=== PATIENT | female | born 1980 | race Caucasian/White ===

== ENCOUNTER 2016-11-10 18:56 | Emergency (ER) | payer OTHER ==
[~2016-11-10] VITALS: Ht 165.1 cm; Wt 122.5 kg
[~2016-11-10 18:56] MED LIST: ACHYD1T PO; HYDR-3812 PO; TRM50T PO
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
[2016-11-10] MEDS ORDERED: RT-ALBUINH IH (19:11)
[2016-11-10] MEDS ORDERED: NS IV 1000 ML 1,000 ML IV ONE (19:26)
--- NOTE | 2016-11-10 19:47 | ED General ---
General Chief Complaint: Fever-Adult/Adol Stated Complaint: SPIDER BITE;FEVER Nursing Triage Note: pt reports she went to donate blood et fever suddenly went from 98.7 to 103. reports she has had a spider bite on the back of her knee since Monday or Monday. Also c/o soa. Nursing Sepsis Screen: Possible Sepsis Risk Source of Information: Patient Exam Limitations: No Limitations History of Present Illness Time Seen by Provider: 19:15 Initial Comments here with report of fever and a spider bite to the back of her left leg. She states that [facility] and had her fever taken. It was apparently normal. Sometime after that she was noted to be flushed and had her temperature taken again and it was 103. Somebody at that area then looked at the spider bite on the back of her leg and said that she needed to immediately go to the ER which she has done. She does report fever, runny nose with mild cough and a sore throat. Reports this wound to the back of her leg behind the knee that has been there since last Monday or Monday (4- 5 days). And has not gotten too much worse but has not gotten better. Denies nausea or vomiting. Denies dysuria. Has had recent bout of influenza a follow- up on pneumonia earlier this year. Timing/Duration: 1 Hour, 4-5 Days Severity: Moderate Associated Systoms: Cough Fever/ChillsNo Nausea/Vomiting, Rash Shortness of AirNo Weakness Allergies and Home Medications Allergies Coded Allergies: latex (Unverified Allergy, Severe, Swelling, Airway Problems, 08/31/12) Sulfa (Sulfonamide Antibiotics) (Verified Allergy, Unknown, NAUSEA, ) bleeding reaction aspirin (Verified Allergy, Unknown, 11/14/07) ibuprofen (Verified Allergy, Unknown, 11/14/07) lidocaine (Verified Allergy, Unknown, 11/14/07) influenza virus vaccine, specific (Verified Adverse Reaction, Mild, ) Home Medications Albuterol Sulfate 6.7 Gm Hfa.aer.ad 2 PUFF IH Q6H PRN PRN SHORTNESS OF BREATH ( Reported) Constitutional: see HPI EENTM: nose congestion see HPI throat pain Respiratory: see HPI cough short of breath Cardiovascular: no symptoms reported Gastrointestinal: No nausea, No vomiting Genitourinary: no symptoms reported Musculoskeletal: no symptoms reported Skin: see HPI lesions Psychiatric/Neurological: No Symptoms Reported All Other Systems Reviewed Negative Unless Noted: Yes Past Ejdgwvg-Ozvcia-Xtomrb Hx Patient Social History Alcohol Use: Rarely Uses Recreational Drug Use: No Smoking Status: Never a Smoker 2nd Hand Smoke Exposure: No Recent Foreign Travel: No Contact w/Someone Who Travel: No Recent Infectious Disease Expo: No Recent Hopitalizations: No (recently treated for pneumonia outpatient) Seasonal Allergies Seasonal Allergies: Yes Surgeries HX Surgeries: Yes (l knee scope, r fallopian tube) Surgeries: Section, Gallbladder, Orthopedic, Tubal Ligation Respiratory Hx Respiratory Disorders: Yes Respiratory Disorders: Asthma Cardiovascular Hx Cardiac Disorders: No Neurological Hx Neurological Disorders: No Reproductive System Hx Reproductive Disorders: No Genitourinary Hx Genitourinary Disorders: No Gastrointestinal Hx Gastrointestinal Disorders: No Gastrointestinal Disorders: Pancreatitis Musculoskeletal Hx Musculoskeletal Disorders: Yes (bilat knees) Musculoskeletal Disorders: Arthritis Endocrine Hx Endocrine Disorders: No HEENT HX ENT Disorders: No Cancer Hx Cancer: No Psychosocial Hx Psychiatric Problems: No Integumentary HX Skin/Integumentary Disorder: No Blood Transfusions Hx Blood Disorders: Yes (iron defiencincy anemia) Reviewed Nursing Assessment Reviewed/Agree w Nursing PMH: Yes Physical Exam Vital Signs Vital Sign - Last 12Hours 11/10/16 19:04 Temp 101.9 Pulse 130 Resp 32 B/P 190/108 Capillary Refill : Less Than 3 Seconds General Appearance: No Apparent Distress WD/WN HEENT: PERRL/EOMI Pharyngeal ErythemaNo Tonsillar Enlargement, Other ( moderate nasal congestion with clear rhinorrhea and moderate erythema) Neck: Non Tender Supple Respiratory: Lungs Clear Normal Breath Sounds Cardiovascular: No Murmur Tachycardia Gastrointestinal: Non Tender Soft Back: Normal Inspection No CVA Tenderness No Vertebral Tenderness Extremity: Non Tender No Calf Tenderness Neurologic/Psychiatric: Alert Oriented x3 Skin: Normal Color Warm/Dry Focused Exam Lactic Acid Level Laboratory Tests Test 11/10/16 19:45 Alanine Aminotransferase (ALT/SGPT) 20U/L (0-55) Albumin 4.0G/DL (3.2-4.5) Alkaline Phosphatase 76U/L (40-136) Anion Gap 13MMOL/L (5-14) Aspartate Amino Transf (AST/SGOT) 14U/L (5-34) BUN/Creatinine Ratio 14 Blood Urea Nitrogen 11MG/DL (7-18) C-Reactive Protein High Sensitivity 1.96MG/DL (0.00-0.50) H Calcium Level 8.7MG/DL (8.5-10.1) Carbon Dioxide Level 22MMOL/L (21-32) Chloride Level 102MMOL/L (98-107) Creatinine 0.77MG/DL (0.60-1.30) Estimat Glomerular Filtration Rate > 60 Glucose Level 126MG/DL (70-105) H Potassium Level 3.9MMOL/L (3.6-5.0) Sodium Level 137MMOL/L (135-145) Total Bilirubin 0.3MG/DL (0.1-1.0) Total Protein 7.2G/DL (6.4-8.2) Progress/Results/Core Measures Results/Orders Lab Results Laboratory Tests Test 11/10/16 19:35 11/10/16 19:45 Range/Units Group A Streptococcus Screen POSITIVE H NEGATIVE Alanine Aminotransferase (ALT/SGPT) 20 0-55 U/L Albumin 4.0 3.2-4.5 G/DL Alkaline Phosphatase 76 40-136 U/L Anion Gap 13 5-14 MMOL/L Aspartate Amino Transf (AST/SGOT) 14 5-34 U/L BUN/Creatinine Ratio 14 Band Neutrophils 2 % Basophils # (Auto) 0.0 0.0-0.1 10^3/uL Basophils % (Manual) 0 % Basophils (%) (Auto) 0 0-10 % Blood Morphology Comment NORMAL Blood Urea Nitrogen 11 7-18 MG/DL C-Reactive Protein High Sensitivity 1.96 H 0.00-0.50 MG/DL Calcium Level 8.7 8.5-10.1 MG/DL Carbon Dioxide Level 22 21-32 MMOL/L Chloride Level 102 98-107 MMOL/L Creatinine 0.77 0.60-1.30 MG/DL Eosinophils # (Auto) 0.1 0.0-0.3 10^3/uL Eosinophils % (Manual) 0 % Eosinophils (%) (Auto) 1 0-10 % Estimat Glomerular Filtration Rate > 60 Glucose Level 126 H 70-105 MG/DL Hematocrit 35 35-52 % Hemoglobin 11.5 11.5-16.0 G/DL Lymphocytes # (Auto) 1.7 1.0-4.0 X 10^3 Lymphocytes % (Manual) 13 % Lymphocytes (%) (Auto) 11 L 12-44 % Mean Corpuscular Hemoglobin 24 L 25-34 PG Mean Corpuscular Hemoglobin Concent 33 32-36 G/DL Mean Corpuscular Volume 73 L 80-99 FL Mean Platelet Volume 9.7 7.4-10.4 FL Monocytes # (Auto) 0.8 0.0-1.0 X 10^3 Monocytes % (Manual) 1 % Monocytes (%) (Auto) 5 0-12 % Neutrophils # (Auto) 12.2 H 1.8-7.8 X 10^3 Neutrophils % (Manual) 84 % Neutrophils (%) (Auto) 83 H 42-75 % Platelet Count 329 130-400 10^3/uL Potassium Level 3.9 3.6-5.0 MMOL/L Red Blood Count 4.85 4.35-5.85 10^6/uL Red Cell Distribution Width 18.9 H 10.0-14.5 % Sodium Level 137 135-145 MMOL/L Total Bilirubin 0.3 0.1-1.0 MG/DL Total Protein 7.2 6.4-8.2 G/DL White Blood Count 14.8 H 4.3-11.0 10^3/uL Micro Results Microbiology 11/10/16 Influenza Types A,B Antigen (DEMLA) - Final, Complete My Orders Orders-VANDANA SHANKS MD Cbc With Automated Diff (11/10/16 19:26) Comprehensive Metabolic Panel (11/10/16 19:26) Hs C Reactive Protein (11/10/16 19:26) Rapid Strep A Screen (11/10/16 19:26) Influenza A And B Antigens (11/10/16 19:26) Chest Pa/Lat (2 View) (11/10/16 19:26) Saline Lock/Iv-Start (11/10/16 19:26) Ns Iv 1000 Ml (Sodium Chloride 0.9%) (11/10/16 19:26) Wound Culture (11/10/16 19:26) Manual Differential (11/10/16 19:45) Rx-Mupirocin 2% Oint (Rx-Bactroban) (11/10/16 21:04) Cephalexin Capsule (Keflex Capsule) (11/10/16 21:04) Acetaminophen Tablet (Tylenol Tablet) (11/10/16 21:41) Ekg Tracing (11/10/16 22:27) Ns Iv 1000 Ml (Sodium Chloride 0.9%) (11/10/16 22:43) Medications Given in ED Current Medications Medications Dose Ordered Sig/Cain Route Start Time Stop Time Status Last Admin Dose Admin Sodium Chloride 1,000 ml @ 0 mls/hr Q0M ONCE IV 11/10/16 19:26 11/10/16 19:28 DC 11/10/16 19:54 1,000 MLS/HR Vital Signs/I&O Vital Sign - Last 12Hours 11/10/16 11/10/16 19:04 21:49 Temp 101.9 102.6 Pulse 130 Resp 32 B/P 190/108 Blood Pressure Mean: 135 Progress Note : Progress Note seen and evaluated. IV, labs, wound culture left leg, strep screen and influenza screen done. The area of abscess/folliculitis on the posterior left leg just below the bend of the knee was cleansed with Betadine and pustular head unroofed with a needle and culture taken of purulent material that was drained. This was covered with antibiotic ointment and dressing. normal saline 1 L bolus and chest x-ray ordered. Monitor patient. Rapid strep is positive. We will apply mupirocin ointment to the wound and initiate Keflex treatment. Wound cultures are pending. Keflex 500 mg by mouth. Tylenol 1 g by mouth. EKG done. This shows sinus tachycardia. I did review patient's history and she has had recent persistent tachycardia. O2 sats are in normal range On room air. Discharged home with return precautions. Patient verbalize understanding instructions and agreement with plan. ECG Initial ECG Impression Date: Nov 10, 2016 Initial ECG Impression Time: 21:38 Initial ECG Rate: 117 Initial ECG Rhythm: S.Tach Comment Sinus tachycardia with normal axis. No evidence of ST elevation MS. No previous available for comparison. Interpreted by me. Diagnostic Imaging Diagonstic Imaging: Xray Plain Films/CT/US/NM/MRI: chest [facility] [place], [place] NAME: DIANA JOHNSON [facility] REC#: [id number] PT STATUS: REG ER : 1980 PHYSICIAN: VANDANA SHANKS MD ADMIT DATE: 11/10/16/ER Draft Date of Exam:11/10/16 CHEST PA/LAT (2 VIEW) Indication: Fever and dyspnea. Discussion: Two views of the chest were obtained, comparison 04/18/2016. Elevated right hemidiaphragm is stable. Stable normal heart size. No focal consolidation, pleural fluid, or pneumothorax. No osseous abnormality. Impression: 1. Negative chest. Dictated on workstation # [id number] Dict: 11/10/162024 Trans: 11/10/162026 [facility] [id number] Interpreted by: MISTY AYALA MD Electronically signed by: Departure Impression Impression: Primary Impression: Strep pharyngitis Disposition: HOME, SELF-CARE Condition: Stable Departure-Patient Inst. Decision time for Depature: 22:40 Referrals: NO,LOCAL PHYSICIAN (PCP/Family) Primary Care Physician Patient Instructions: Fever, Adult (DC), Strep Throat (DC) Add. Discharge Instructions: All discharge instructions reviewed with patient and/or family. Voiced understanding. You may take Tylenol 1000 mg every 6 hours as needed for pain or fever. Drink plenty of fluids. Follow-up with your Dr. in one to 2 days for recheck. Take medications as directed. Return for worsening, fever, vomiting, weakness, breathing problems or other concerns as needed. Work/School Note: Work Release Form Date Seen in the Emergency Department: Nov 10, 2016 Return to Work: Nov 12, 2016 Restrictions: No Restrictions VANDANA SHANKS MD Nov 10, 2016 19:47
[2016-11-10 19:56] LABS: BASOPHILS % (AUTO) 0 % (0-10); EOSINOPHILS # (AUTO) 0.1 10^3/uL (0.0-0.3); EOSINOPHILS % (AUTO) 1 % (0-10); LYMPHOCYTES # (AUTO) 1.7 X 10^3 (1.0-4.0); LYMPHOCYTES % (AUTO) 11 % (12-44); MEAN CORPUSCULAR HEMOGLOBIN 24 PG (25-34); MEAN CORPUSCULAR HGB CONC 33 G/DL (32-36); MEAN CORPUSCULAR VOLUME 73 FL (80-99); MEAN PLATELET VOLUME 9.7 FL (7.4-10.4); MONOCYTES # (AUTO) 0.8 X 10^3 (0.0-1.0); MONOCYTES % (AUTO) 5 % (0-12); NEUTROPHILS # (AUTO) 12.2 X 10^3 (1.8-7.8); NEUTROPHILS % (AUTO) 83 % (42-75); PLATELET COUNT 329 10^3/uL (130-400); RED BLOOD COUNT 4.85 10^6/uL (4.35-5.85); RED CELL DISTRIBUTION WIDTH 18.9 % (10.0-14.5); WHITE BLOOD COUNT 14.8 10^3/uL (4.3-11.0)
[2016-11-10 20:12] LABS: ALANINE AMINOTRANSFERASE 20 U/L (0-55); CALCIUM 8.7 MG/DL (8.5-10.1); CHLORIDE 102 MMOL/L (98-107); CREATININE SERUM 0.77 MG/DL (0.60-1.30); GFR ESTIMATED > 60; POTASSIUM 3.9 MMOL/L (3.6-5.0); SODIUM 137 MMOL/L (135-145); TOTAL PROTEIN 7.2 G/DL (6.4-8.2); hs C REACTIVE PROTEIN 1.96 MG/DL (0.00-0.50)
[2016-11-10 20:16] LABS: BAND NEUTROPHILS 2 %; BASOPHILS % (MANUAL) 0 %; EOSINOPHILS % (MANUAL) 0 %; LYMPHOCYTES % (MANUAL) 13 %; NEUTROPHILS % (MANUAL) 84 %
--- NOTE | 2016-11-10 20:28 | Diagnostic Imaging Report ---
Indication: Fever and dyspnea. Discussion: Two views of the chest were obtained, comparison 04/18/2016. Elevated right hemidiaphragm is stable. Stable normal heart size. No focal consolidation, pleural fluid, or pneumothorax. No osseous abnormality. Impression: 1. Negative chest. Dictated by: Dictated on workstation # [id number]
[2016-11-10 20:40] LABS: ANION GAP 13 MMOL/L (5-14); ASPARTATE AMINO TRANSFERASE 14 U/L (5-34); BILIRUBIN,TOTAL 0.3 MG/DL (0.1-1.0); BLOOD UREA NITROGEN 11 MG/DL (7-18); BUN/CREATININE RATIO 14; CARBON DIOXIDE 22 MMOL/L (21-32); GLUCOSE 126 MG/DL (70-105)
[2016-11-10] MEDS ORDERED: RX-MUPIROCIN (BACTROBAN) 2% OINT 22 GM TUBE TOP STA (21:04)
[2016-11-10] MEDS ORDERED: CEPHALEXIN 250 MG (KEFLEX) CAP PO STA (21:04)
[2016-11-10] MEDS ORDERED: ACETAMINOPHEN 500 MG TAB (TYLENOL) PO STA (21:41)
[2016-11-10] MEDS ORDERED: NS IV 1000 ML 0 ML ONE (22:43)
[2016-11-10] MEDS ORDERED: CEPH500T PO (22:50)
[2016-11-10 22:52] VITALS: BP 145/97
== END 2016-11-10 22:52 | disposition home or self-care (01) ==
LOC: EDUNIT# 18:56 → ER 18:58
DX: J02.0 Streptococcal pharyngitis (principal); L02.416 Cutaneous abscess of left lower limb
CPT/HCPCS: 36415; 71020; 80053; 85007; 85027; 86141; 87070; 87077; 87186; 87205; 87430; 87804; 93005; 96360; 96361

== ENCOUNTER → 2018-05-15 | Outpatient (CLI) | payer OTHER ==
[~2018-05-15] MED LIST changes: +ACHD5005 PO; +CEPH500T PO; -HYDR-3812 PO; +RT-ALBUINH IH
--- NOTE | 2018-05-15 13:38 | Diagnostic Imaging Report ---
EXAMINATION: Ultrasound of the left neck. INDICATION: Mass. COMPARISON: There are no prior studies available for comparison. FINDINGS: By history, the patient has had a long-standing mass along the left jaw line for approximately 15 years. Two weeks ago, the area in question was drained. It has subsequently increased in size. On this study, there is a 1.8 x 1.0 x 1.5 cm avascular hypoechoic mass with a hyperechoic center in the region of the patient's palpable abnormality. I suspect that this is a small fluid collection complicated by infection and/or hemorrhage. There is also a small benign-appearing 7 x 6 mm lymph node in this same area. No other abnormality is identified. IMPRESSION: There is a small 1.8 x 1.0 x 1.5 cm complex fluid collection in the area of the patient's palpable abnormality. Most likely, this is an infectious/inflammatory process. An ENT consult would be recommended. Dictated by: Dictated on workstation # [id number]
== END ==
LOC: RAD 10:59
PROVIDERS: ATTEND Nurse Practitioner Family
DX: R22.1 Localized swelling, mass and lump, neck (principal)
CPT/HCPCS: 76536

== ENCOUNTER → 2021-04-20 | Outpatient (CLI) | payer OTHER ==
--- NOTE | 2021-04-20 18:30 | Diagnostic Imaging Report ---
EXAM: Left wrist at 4:49 PM INDICATION: Pain to the base of second metacarpal. 3 views were obtained. There are no prior studies available for comparison. There is no fracture, dislocation or acute bony abnormality evident. There do not appear to be any significant arthritic changes of the wrist or the visualized hand. The soft tissues are unremarkable. IMPRESSION: 1. There is no evidence for an acute bony abnormality. 2. If clinical concern regarding an underlying abnormality persists and further imaging is desired, then MRI would be recommended. Dictated by: Dictated on workstation # [id number]
== END ==
LOC: RAD 16:27
PROVIDERS: ATTEND Physician Assistant
DX: M25.532 Pain in left wrist (principal)
CPT/HCPCS: 73110

== ENCOUNTER → 2021-04-28 | Outpatient (CLI) | payer BC, OTHER ==
--- NOTE | 2021-04-28 08:58 | Diagnostic Imaging Report ---
INDICATION: Routine screening. COMPARISON: No prior mammograms are available for comparison. This is a baseline study. TECHNIQUE: 2D and 3D bilateral screening mammography was performed with CAD. FINDINGS: Scattered fibroglandular densities are identified bilaterally. No mass or malignant-appearing microcalcifications are seen. The axillae are unremarkable. IMPRESSION: No mammographic features suspicious for malignancy are identified. ACR BI-RADS Category 1: Negative. Result letter will be mailed to the patient. Note: At least 10% of breast cancer is not imaged by mammography. Dictated by: Dictated on workstation # [id number]
== END ==
LOC: RAD 07:35
PROVIDERS: ATTEND Nurse Practitioner Family
DX: Z12.31 Encounter for screening mammogram for malignant neoplasm of breast (principal)
CPT/HCPCS: 77063; 77067

== ENCOUNTER 2021-08-20 20:58 | Emergency (ER) | payer BC ==
[~2021-08-20] VITALS: Ht 165.1 cm; Wt 108.9 kg
[2021-08-20 21:15] VITALS: BP 119/79
[2021-08-20] MEDS ORDERED: LACTATED RINGERS 1,000 ML IV ONE ×2 (21:30→21:45)
[2021-08-20] MEDS ORDERED: ONDANSETRON 4 MG/2 ML (SDV) Z0FRAN IVP ONE (21:30)
[2021-08-20] MEDS ORDERED: ACETAMINOPHEN 500 MG TAB (TYLENOL) PO PRN (21:30)
[2021-08-20 21:34] LABS: ABG BASE EXCESS -0.7 MMOL/L (-2.5-2.5); ABG OXYGEN SATURATION 96 % (94-100); ABG PCO2 37 MMHG (35-45); ABG PH 7.42 (7.37-7.43); ABG PO2 90 MMHG (79-93); ABG TCO2 23.9 MMOL/L (21.0-31.0)
[2021-08-20 21:37] LABS: ALLENS TEST YES-POS; INSPIRED O2 ROOM AIR; VENTILATOR NO
--- NOTE | 2021-08-20 21:37 | ED Dyspnea ---
General Chief Complaint: COVID19 Suspect/Confirmed Stated Complaint: SOA,COUGH,N/V, DIARRHEA,HEADACHE Source of Information: Patient Exam Limitations: No Limitations History of Present Illness Date Seen by Provider: Aug 20, 2021 Time Seen by Provider: 21:14 Initial Comments Patient ER by private conveyance with chief complaint that she is feeling very short of breath today. On Monday she was diagnosed with influenza A and a couple days later she was diagnosed with COVID-19. She does not have any lung history. She does not smoke cigarettes. She does however have diabetes on sulfonylureas only. She denies any other significant medical history. No lung disease. She is not coughing anything up. Has been vomiting a lot and having diarrhea and feels very dehydrated. She does not have any nausea medicines at home. She is not able to take anything for antipyretics or antidiarrheal either. She has been having fever throughout the week. She never got a COVID-1 9 vaccine because she was "allergic to it". She has a stated history of allergic reaction to influenza and all NSAIDs caused her to have difficulty breathing. Allergies and Home Medications Allergies Coded Allergies: latex (Unverified Allergy, Severe, Swelling, Airway Problems, 08/31/12) Sulfa (Sulfonamide Antibiotics) (Verified Allergy, Unknown, NAUSEA, 11/10/16) bleeding reaction aspirin (Verified Allergy, Unknown, 11/14/07) ibuprofen (Verified Allergy, Unknown, 11/14/07) lidocaine (Verified Allergy, Unknown, 11/14/07) influenza virus vaccine, specific (Verified Adverse Reaction, Mild, 12/10/12) Patient Home Medication List Home Medication List Reviewed: Yes Albuterol Sulfate (Proventil Hfa) 6.7 Gm Hfa.aer.ad, 2 PUFF IH Q6H PRN for SHORTNESS OF BREATH, (Reported) Entered as Reported by: RACHEL RAE on 11/10/161910 Cephalexin (Cephalexin) 500 Mg Tablet, 500 MG PO TID Prescribed by: VANDANA SHANKS on 11/10/162249 Ondansetron (Ondansetron Odt) 4 Mg Tab.rapdis, 4-8 MG PO Q6H PRN for NAUSEA/VOMITING Prescribed by: KATHLEEN JURADO on 08/20/21 2320 Promethazine HCl (Promethazine Tablet) 25 Mg Tablet, 25 MG PO Q6H PRN for NAUSEA/VOMITING Prescribed by: KATHLEEN JURADO on 08/20/21 4850 Review of Systems Review of Systems Constitutional: No chills, No diaphoresis EENTM: No ear discharge, No ear pain Respiratory: cough; No phlegm; short of breath; No wheezing Gastrointestinal: No abdominal pain, No nausea, No vomiting Genitourinary: No discharge, No dysuria Musculoskeletal: No back pain, No joint pain Psychiatric/Neurological: Anxiety; Denies Depressed All Other Systems Reviewed Negative Unless Noted: Yes Past Ytgmnvx-Wwiiyw-Ocecju Hx Patient Social History Tobacco Use?: No Use of E-Cig and/or Vaping dev: No Substance use?: No Alcohol Use?: No Pt feels they are or have been: No Immunizations Up To Date Influenza Vaccine Up-to-Date: No; Not Current Seasonal Allergies Seasonal Allergies: Yes Past Medical History Section, Gallbladder, Orthopedic, Tubal Ligation Asthma Reproductive Disorders: No Pancreatitis Arthritis Physical Exam Vital Signs Vital Signs - First Documented Capillary Refill : Height, Weight, BMI Height: 5'5" Weight: 270lbs. oz. [phone]; BMI Method:Stated General Appearance: WD/WN, Moderate Distress HEENT: PERRL/EOMI, Normal ENT Inspection; No Pharynx Normal, No Moist Mucous Membranes Neck: Full Range of Motion, Normal Inspection, Non Tender Respiratory: Lungs Clear, Normal Breath Sounds, Accessory Muscle Use, Respiratory Distress (Mild to moderate moderate with respiratory rate around 30- 32 and oxygen saturations 92%. On room air.) Cardiovascular: Regular Rate, Rhythm, No Edema, Normal Peripheral Pulses Peripheral Pulses: 2+ Radial Pulses (R), 2+ Radial Pulses (L) Gastrointestinal: Normal Bowel Sounds, Non Tender, Soft Extremity: Normal Capillary Refill, Normal Inspection, No Pedal Edema Neurologic/Psychiatric: Alert, Oriented x3, No Motor/Sensory Deficits, Other (Depressed affect, tired) Skin: Normal Color, Warm/Dry Focused Exam Lactate Level 08/20/21 21:35: Lactic Acid Level 0.86 Lactic Acid Level Laboratory Tests Test 08/20/21 21:35 Lactic Acid Level 0.86 MMOL/L (0.50-2.00) Progress/Results/Core Measures Results/Orders Lab Results Laboratory Tests Test 08/20/21 21:20 08/20/21 21:35 08/20/21 21:45 08/20/21 21:50 Range/Units Blood Gas Puncture Site RIGHT RADIAL Blood Gas Patient Temperature 102.00 Arterial Blood pH 7.42 7.37-7.43 Arterial Blood Partial Pressure CO2 37 35-45 MMHG Arterial Blood Partial Pressure O2 90 79-93 MMHG Arterial Blood HCO3 23 23-27 MMOL/L Arterial Blood Total CO2 23.9 21.0-31.0 MMOL/L Arterial Blood Oxygen Saturation 96 94-100 % Arterial Blood Base Excess -0.7 -2.5-2.5 MMOL/L Maciej Test YES-POS Blood Gas Ventilator Setting NO Blood Gas Inspired Oxygen ROOM AIR White Blood Count 5.4 4.3-11.0 10^3/uL Red Blood Count 4.56 3.80-5.11 10^6/uL Hemoglobin 13.2 11.5-16.0 g/dL Hematocrit 38 35-52 % Mean Corpuscular Volume 83 80-99 fL Mean Corpuscular Hemoglobin 29 25-34 pg Mean Corpuscular Hemoglobin Concent 35 32-36 g/dL Red Cell Distribution Width 12.0 10.0-14.5 % Platelet Count 141 130-400 10^3/uL Mean Platelet Volume 11.1 9.0-12.2 fL Immature Granulocyte % (Auto) 0 % Neutrophils (%) (Auto) 72 42-75 % Lymphocytes (%) (Auto) 21 12-44 % Monocytes (%) (Auto) 6 0-12 % Eosinophils (%) (Auto) 0 0-10 % Basophils (%) (Auto) 0 0-10 % Neutrophils # (Auto) 3.9 1.8-7.8 10^3/uL Lymphocytes # (Auto) 1.2 1.0-4.0 10^3/uL Monocytes # (Auto) 0.3 0.0-1.0 10^3/uL Eosinophils # (Auto) 0.0 0.0-0.3 10^3/uL Basophils # (Auto) 0.0 0.0-0.1 10^3/uL Immature Granulocyte # (Auto) 0.0 0.0-0.1 10^3/uL Prothrombin Time 13.5 12.2-14.7 SEC INR Comment 1.0 0.8-1.4 Activated Partial Thromboplast Time 36 H 24-35 SEC D-Dimer 1.41 H 0.00-0.49 UG/ML Sodium Level 129 L 135-145 MMOL/L Potassium Level 3.7 3.6-5.0 MMOL/L Chloride Level 98 98-107 MMOL/L Carbon Dioxide Level 19 L 21-32 MMOL/L Anion Gap 12 5-14 MMOL/L Blood Urea Nitrogen 9 7-18 MG/DL Creatinine 0.76 0.60-1.30 MG/DL Estimat Glomerular Filtration Rate 83 BUN/Creatinine Ratio 12 Glucose Level 181 H 70-105 MG/DL Lactic Acid Level 0.86 0.50-2.00 MMOL/L Calcium Level 8.3 L 8.5-10.1 MG/DL Corrected Calcium 8.5 8.5-10.1 MG/DL Total Bilirubin 0.5 0.1-1.0 MG/DL Aspartate Amino Transf (AST/SGOT) 27 5-34 U/L Alanine Aminotransferase (ALT/SGPT) 21 0-55 U/L Alkaline Phosphatase 58 40-136 U/L C-Reactive Protein High Sensitivity 4.73 H 0.00-0.50 MG/DL Total Protein 7.6 6.4-8.2 GM/DL Albumin 3.8 3.2-4.5 GM/DL Procalcitonin 0.06 <0.10 NG/ML Magnesium Level 1.7 1.6-2.4 MG/DL Urine Color YELLOW Urine Clarity CLEAR Urine pH 6.0 5-9 Urine Specific Check 1.025 H 1.016-1.022 Urine Protein 1+ H NEGATIVE Urine Glucose (UA) NEGATIVE NEGATIVE Urine Ketones NEGATIVE NEGATIVE Urine Nitrite NEGATIVE NEGATIVE Urine Bilirubin NEGATIVE NEGATIVE Urine Urobilinogen 0.2 < = 1.0 MG/DL Urine Leukocyte Esterase NEGATIVE NEGATIVE Urine RBC (Auto) NEGATIVE NEGATIVE Urine RBC NONE /HPF Urine WBC NONE /HPF Urine Squamous Epithelial Cells 2-5 /HPF Urine Crystals NONE /LPF Urine Bacteria TRACE /HPF Urine Casts NONE /LPF Urine Mucus MODERATE H /LPF Urine Culture Indicated CULTURE PENDING My Orders Orders - KATHLEEN JURADO Arterial Blood Gas (08/20/21 21:25) Cbc With Automated Diff (08/20/21 21:25) Comprehensive Metabolic Panel (08/20/21 21:25) Blood Culture (08/20/21 21:25) Urinalysis (08/20/21 21:25) Urine Culture (08/20/21 21:25) Protime With Inr (08/20/21:25) Partial Thromboplastin Time (08/20/21:25) Chest 1 View, Ap/Pa Only (08/20/21 21:25) Acetaminophen Tablet (Tylenol Tablet) (08/20/21 21:30) Ed Iv/Invasive Line Start (08/20/21 21:25) Ed Iv/Invasive Line Start (08/20/21:25) Vital Signs Adult Sepsis Patie Q15M (08/20/21 21:25) O2 (08/20/21 21:25) Remove Rings In Anticipation O (08/20/21:25) Lactic Acid Analyzer (08/20/21:25) Lactated Ringers (Lr 1000 Ml Iv Solution (08/20/21 21:30) Covid-19 External Lab Results (08/20/21 21:25) Isolation Central Supply Req (08/20/21 21:25) Ondansetron Injection (Zofran Injectio (08/20/21 21:30) Procalcitonin (Pct) (08/20/21 21:31) Hs C Reactive Protein (08/20/21:31) Fibrin Degradation Products (08/20/21:31) Ed Iv/Invasive Line Start (08/20/21 21:31) Lactated Ringers (Lr 1000 Ml Iv Solution (08/20/21 21:45) Magnesium (08/20/21 21:51) Ct Angio Chest W (08/20/21 22:00) Iohexol Injection (Omnipaque 350 Mg/Ml 1 (08/20/21 22:45) Received Contrast (Hold Metformin- Contr (08/20/21 22:45) Ns (Ivpb) (Sodium Chloride 0.9% Ivpb Bag (08/20/21 22:45) Promethazine Injection (Phenergan Injec (08/20/21 23:30) Diphenhydramine Injection (Benadryl Inje (08/20/21 23:30) Phenol/Na Phenolate Lozenge (Chlorasepti (08/21/21 01:15) Medications Given in ED Current Medications Medications Dose Ordered Sig/Cain Route Start Time Stop Time Status Last Admin Dose Admin Acetaminophen 1,000 mg ONCE PRN PO 08/20/21 21:30 08/20/21 21:44 DC 08/20/21 21:43 1,000 MG Diphenhydramine HCl 25 mg ONCE ONCE IVP 08/20/21 23:30 08/20/21 23:31 DC 08/21/21 00:09 25 MG Iohexol 100 ml ONCE ONCE IV 08/20/21 22:45 08/20/21 22:52 DC 08/20/21 22:58 100 ML Lactated Ringer's 1,000 ml @ 0 mls/hr Q0M ONCE IV 08/20/21 21:30 08/20/21 21:31 DC 08/20/21 21:41 1,000 MLS/HR Lactated Ringer's 1,000 ml @ 0 mls/hr Q0M ONCE IV 08/20/21 21:45 08/20/21 21:46 DC 08/21/21 00:09 1,000 MLS/HR Ondansetron HCl 8 mg ONCE ONCE IVP 08/20/21 21:30 08/20/21 21:31 DC 08/20/21 21:41 8 MG Phenol 1 jose a ONCE ONCE MM 08/21/21 01:15 08/21/21 01:17 DC 08/21/21 01:30 1 JOSE A Promethazine HCl 25 mg ONCE ONCE IVP 08/20/21 23:30 08/20/21 23:31 DC 08/21/21 00:09 25 MG Sodium Chloride 100 ml ONCE ONCE IV 08/20/21 22:45 08/20/21 22:52 DC 08/20/21 22:58 80 ML Vital Signs/I&O 08/20/21 08/20/21 08/20/21 21:15 21:15 21:15 Temp 38.9 Pulse 117 Resp 20 B/P (MAP) 119/79 (92) Pulse Ox 95 95 O2 Delivery Room Air Room Air Room Air Progress Progress Note #1: Time: 21:35 Progress Note Patient is working very hard to maintain oxygen saturations above 90%. Get an ABG labs give her some Zofran a liter of fluids chest x-ray septic work-up. We will hold off on antibiotics as having Covid and influenza should explain her symptoms. We will get a D-dimer and CRP and PCT. We will get a CT of her chest if she indeed has elevated D-dimer as I suspect she will Progress Note #2: Time: 22:23 Progress Note No antibiotics at this time. We will let her have 2 L of fluid and get a CT angiogram of her chest to rule out pulmonary embolism. ABG is okay. She will likely be okay to go home if her symptoms are improved after our interventions. Sodium is a little low if we get her nausea to stop however then it will likely correct. Progress Note #3: Time: 23:17 Progress Note The patient's nausea has improved however she still feeling nauseated a little bit. She was able to keep Tylenol down and her temperature is 99.8. She has about three quarters of a liter in order to give her a total of 2 L to help rehydrate her. We will also give her some promethazine and Benadryl and then let her go home with return precautions. Patient is okay with this plan. Progress Note #4: Time: 01:06 Progress Note After Phenergan the patient's nausea is better. She also gave her a sore throat to be give her some hot tea and sugar. We will get her a Chloraseptic lozenge. Diagnostic Imaging Diagonstic Imaging: Xray Plain Films/CT/US/NM/MRI: chest Comments [facility]. [place], [place] NAME: DIANA JOHNSON [facility] REC#: [id number] PT STATUS: REG ER : 1980 PHYSICIAN: KATHLEEN JURADO MD ADMIT DATE: 08/20/21/ER Signed Date of Exam:08/20/21 CHEST 1 VIEW, AP/PA ONLY EXAMINATION: Chest radiograph, portable AP view. DATE: 08/20/2021 10:04 PM. INDICATION: 40-year-old female, cough, shortness of breath. Covid positive. COMPARISON: April 18, 2016. FINDINGS: Lung volumes are low with associated central bronchovascular crowding. There is no identified pneumothorax. There is no large pleural effusion. There is no radiographically apparent focal airspace consolidation. IMPRESSION: Low lung volumes without radiographically apparent acute cardiopulmonary abnormality. Dictated by: Dictated on workstation # [id number] Dict: 08/20/212204 Trans: 08/20/212211 [facility] [id number] Interpreted by: EULA COONEY MD Electronically signed by: EULA COONEY MD 08/20/212211 Reviewed: Reviewed by Me Diagonstic Imaging: CT (angio) Plain Films/CT/US/NM/MRI: chest Comments [facility] [place] [place] NAME: DIANA JOHNSON [facility] REC#: [id number] PT STATUS: REG ER : 1980 PHYSICIAN: KATHLEEN JURADO MD ADMIT DATE: 08/20/21/ER Signed Date of Exam:08/20/21 CT ANGIO CHEST W PROCEDURE: CT angiography of the chest with contrast. TECHNIQUE: Multiple contiguous axial images were obtained through the chest after uneventful bolus administration of intravenous contrast. 3D reconstructed CTA MIP acquisitions were also performed. Auto Exposure Controls were utilized during the CT exam to meet ALARA standards for radiation dose reduction. DATE: August 20, 2021. COMPARISON: Chest radiograph August 20, 2021. INDICATION: 40-year-old male, cough. Shortness of breath. FINDINGS: There is multifocal patchy bilateral alveolar consolidation. There is no pneumothorax. There is no pleural effusion. The central airways are patent. There is no identified pulmonary embolus. The heart is not enlarged. There is no pericardial effusion. There is no identified abnormally enlarged mediastinal, hilar or more axillary lymph node meeting CT size criteria for adenopathy. There is diffuse fatty infiltration of the liver. There is no identified acute bony abnormality. IMPRESSION: CT chest: 1. Multifocal patchy bilateral alveolar consolidation most likely reflecting multifocal pneumonia. Atypical infectious etiologies including Covid 19 are in the differential diagnosis. 2. No identified pulmonary embolus. 3. Diffuse fatty infiltration of the liver. Dictated by: Dictated on workstation # [id number] Dict: 08/20/212241 Trans: 08/20/212247 [facility] [id number] Interpreted by: EULA COONEY MD Electronically signed by: EULA COONEY MD 08/20/212247 Reviewed: Reviewed by Me Departure Impression Primary Impression: COVID-19 Additional Impressions: Influenza A Dehydration Nausea & vomiting Qualified Codes: R11.2 - Nausea with vomiting, unspecified Diarrhea Qualified Codes: R19.7 - Diarrhea, unspecified Disposition: 01 HOME, SELF-CARE Condition: Stable Departure-Patient Inst. Decision time for Depature: 02:00 Referrals: REJI PÉREZ DO (PCP/Family) Primary Care Physician Patient Instructions: COVID-19 Overview Add. Discharge Instructions: Zofran 1 to 2 tablets every 6 hours under the tongue as necessary for nausea and/or vomiting. Promethazine 1 tablet every 6 hours as necessary for breakthrough nausea despite Zofran. Drink plenty of fluids. Sports drinks are encouraged. You may return off of isolation onAugust 24 as long as the final 24 hours you are fever free without medications to mask the symptoms. Tylenol 1000 mg every 8 hours as necessary for body aches, fever or chills. If you feel short of breath then I encourage you to get a pulse oximeter and if you are saturation monitor is consistently below 90% while at rest then I would encourage you to return to the nearest ER for examination. All discharge instructions reviewed with patient and/or family. Voiced understanding. Scripts Promethazine HCl (Promethazine Tablet) 25 Mg Tablet 25 MG PO Q6H PRN for NAUSEA/VOMITING, #10 TAB 0 Refills Prov: KATHLEEN JURADO 08/20/21 Ondansetron (Ondansetron Odt) 4 Mg Tab.rapdis 4-8 MG PO Q6H PRN for NAUSEA/VOMITING, #20 TAB 0 Refills Prov: KATHLEEN JURADO 08/20/21 Work/School Note: Work Release Form Date Seen in the Emergency Department: Aug 20, 2021 Return to Work: Aug 24, 2021 Restrictions: Return-No Fever (24hrs) Other Restrictions Listed Below: Off isolation if final 24 hours symptom- free. Restrictions: Please excuse since 08/12/2021. KATHLEEN JURADO Aug 20, 2021 21:36
[2021-08-20 21:42] LABS: BASOPHILS % (AUTO) 0 % (0-10); EOSINOPHILS % (AUTO) 0 % (0-10); HEMATOCRIT 38 % (35-52); HEMOGLOBIN 13.2 g/dL (11.5-16.0); LYMPHOCYTES # (AUTO) 1.2 10^3/uL (1.0-4.0); LYMPHOCYTES % (AUTO) 21 % (12-44); MEAN CORPUSCULAR HEMOGLOBIN 29 pg (25-34); MEAN CORPUSCULAR HGB CONC 35 g/dL (32-36); MEAN CORPUSCULAR VOLUME 83 fL (80-99); MEAN PLATELET VOLUME 11.1 fL (9.0-12.2); MONOCYTES # (AUTO) 0.3 10^3/uL (0.0-1.0); MONOCYTES % (AUTO) 6 % (0-12); NEUTROPHILS # (AUTO) 3.9 10^3/uL (1.8-7.8); NEUTROPHILS % (AUTO) 72 % (42-75); PLATELET COUNT 141 10^3/uL (130-400); WHITE BLOOD COUNT 5.4 10^3/uL (4.3-11.0)
[2021-08-20 21:52] LABS: ALBUMIN 3.8 GM/DL (3.2-4.5); POTASSIUM 3.7 MMOL/L (3.6-5.0)
[2021-08-20 21:53] LABS: CALCIUM 8.3 MG/DL (8.5-10.1); FIBRIN DEGRADATION PRODUCTS 1.41 UG/ML (0.00-0.49); PROTHROMBIN TIME PATIENT 13.5 SEC (12.2-14.7)
[2021-08-20 21:55] LABS: TOTAL PROTEIN 7.6 GM/DL (6.4-8.2)
[2021-08-20 21:56] LABS: BILIRUBIN,TOTAL 0.5 MG/DL (0.1-1.0)
[2021-08-20 21:58] LABS: CREATININE SERUM 0.76 MG/DL (0.60-1.30)
[2021-08-20 22:03] LABS: BILIRUBIN,URINE NEGATIVE (NEGATIVE); CLARITY,URINE CLEAR; COLOR,URINE YELLOW; GLUCOSE, URINE (UA) NEGATIVE (NEGATIVE); KETONES,URINE NEGATIVE (NEGATIVE); LEUKOCYTE ESTERASE ,URINE NEGATIVE (NEGATIVE); NITRITE,URINE NEGATIVE (NEGATIVE); PROTEIN,URINE 1+ (NEGATIVE)
--- NOTE | 2021-08-20 22:08 | Diagnostic Imaging Report ---
EXAMINATION: Chest radiograph, portable AP view. DATE: 08/20/2021 10:04 PM. INDICATION: 40-year-old female, cough, shortness of breath. Covid positive. COMPARISON: April 18, 2016. FINDINGS: Lung volumes are low with associated central bronchovascular crowding. There is no identified pneumothorax. There is no large pleural effusion. There is no radiographically apparent focal airspace consolidation. IMPRESSION: Low lung volumes without radiographically apparent acute cardiopulmonary abnormality. Dictated by: Dictated on workstation # [id number]
[2021-08-20 22:10] LABS: BACTERIA,URINE TRACE /HPF
[2021-08-20] MEDS ORDERED: NS 100 ML (IVPB) BAG IV ONE (22:45)
[2021-08-20] MEDS ORDERED: HOLD METFORMIN - RECEIVED CONTRAST 20 ML VIAL IV SCH (22:45)
[2021-08-20] MEDS ORDERED: IOHEXOL 350 MG/ML 100 ML (OMNIPAQUE 350) VIAL IV ONE (22:45)
--- NOTE | 2021-08-20 22:48 | Diagnostic Imaging Report ---
PROCEDURE: CT angiography of the chest with contrast. TECHNIQUE: Multiple contiguous axial images were obtained through the chest after uneventful bolus administration of intravenous contrast. 3D reconstructed CTA MIP acquisitions were also performed. Auto Exposure Controls were utilized during the CT exam to meet ALARA standards for radiation dose reduction. DATE: August 20, 2021. COMPARISON: Chest radiograph August 20, 2021. INDICATION: 40-year-old male, cough. Shortness of breath. FINDINGS: There is multifocal patchy bilateral alveolar consolidation. There is no pneumothorax. There is no pleural effusion. The central airways are patent. There is no identified pulmonary embolus. The heart is not enlarged. There is no pericardial effusion. There is no identified abnormally enlarged mediastinal, hilar or more axillary lymph node meeting CT size criteria for adenopathy. There is diffuse fatty infiltration of the liver. There is no identified acute bony abnormality. IMPRESSION: CT chest: 1. Multifocal patchy bilateral alveolar consolidation most likely reflecting multifocal pneumonia. Atypical infectious etiologies including Covid 19 are in the differential diagnosis. 2. No identified pulmonary embolus. 3. Diffuse fatty infiltration of the liver. Dictated by: Dictated on workstation # [id number]
[2021-08-20] MEDS ORDERED: ONDA4TAB11 PO (23:20)
[2021-08-20] MEDS ORDERED: PROM25TA14 PO (23:20)
[2021-08-20] MEDS ORDERED: PROMETHAZINE INJ 25 MG/ML (PHENERGAN) AMP IVP ONE (23:30)
[2021-08-20] MEDS ORDERED: diphenhydrAMINE 50 MG/ML INJ (BENADRYL) IVP ONE (23:30)
[2021-08-21] MEDS ORDERED: CHLORASEPTIC LOZENGE MM ONE (01:15)
== END 2021-08-21 02:14 | disposition home or self-care (01) ==
LOC: EDUNIT# 20:58 → ER 21:02
DX: U07.1 COVID-19 (principal); J09.X2 Influenza due to identified novel influenza A virus with other respiratory manifestations; J45.909 Unspecified asthma, uncomplicated; Z73.0 Burn-out; Z79.899 Other long term (current) drug therapy; Z88.2 Allergy status to sulfonamides; Z88.8 Allergy status to other drugs, medicaments and biological substances
CPT/HCPCS: 36415; 71045; 71275; 80053; 81000; 82805; 83605; 83735; 84145; 85025; 85379; 85610; 85730; 86141; 87040; 87088

== ENCOUNTER 2021-08-23 10:06 | Outpatient (CLI) | payer BC ==
[~2021-08-23] VITALS: Ht 165 cm; Wt 109.0 kg
[~2021-08-23 10:06] MED LIST changes: +ONDA4TAB11 PO; +PROM25TA14 PO
[2021-08-23] MEDS ORDERED: ONDANSETRON 4 MG/2 ML (SDV) Z0FRAN IV ONE (10:07)
[2021-08-23 10:35] VITALS: BP 104/65
[2021-08-23] MEDS ORDERED: diphenhydrAMINE 50 MG/ML INJ (BENADRYL) IV PRN (10:45)
[2021-08-23] MEDS ORDERED: ACETAMINOPHEN 500 MG TAB (TYLENOL) PO PRN (10:45)
[2021-08-23] MEDS ORDERED: EPINEPHrine INJECTION 1 MG/ML AMP IM PRN (10:45)
[2021-08-23] MEDS ORDERED: BAMLANIVIMAB 700 MG/ETESEVIMAB 1,400 MG IN NS IV ONE ×3 (10:45)
[2021-08-23] MEDS ORDERED: ONDANSETRON 4 MG/2 ML (SDV) Z0FRAN IV PRN (10:45)
[2021-08-23 12:16] VITALS: BP 102/65
== END 2021-08-23 12:25 | disposition home or self-care (01) ==
LOC: INFUSION 10:06
PROVIDERS: ATTEND Nurse Practitioner Family
DX: U07.1 COVID-19 (principal)

== ENCOUNTER 2021-08-31 13:33 | Emergency (ER) | payer BC ==
[~2021-08-31] VITALS: Ht 165.1 cm; Wt 108.9 kg
[2021-08-31 13:56] LABS: BASOPHILS % (AUTO) 0 % (0-10); EOSINOPHILS # (AUTO) 0.2 10^3/uL (0.0-0.3); EOSINOPHILS % (AUTO) 2 % (0-10); HEMATOCRIT 39 % (35-52); HEMOGLOBIN 12.6 g/dL (11.5-16.0); LYMPHOCYTES # (AUTO) 1.9 10^3/uL (1.0-4.0); LYMPHOCYTES % (AUTO) 20 % (12-44); MEAN CORPUSCULAR HEMOGLOBIN 28 pg (25-34); MEAN CORPUSCULAR HGB CONC 32 g/dL (32-36); MEAN CORPUSCULAR VOLUME 87 fL (80-99); MEAN PLATELET VOLUME 9.5 fL (9.0-12.2); MONOCYTES # (AUTO) 0.5 10^3/uL (0.0-1.0); MONOCYTES % (AUTO) 5 % (0-12); NEUTROPHILS # (AUTO) 6.8 10^3/uL (1.8-7.8); NEUTROPHILS % (AUTO) 72 % (42-75); PLATELET COUNT 363 10^3/uL (130-400); WHITE BLOOD COUNT 9.5 10^3/uL (4.3-11.0)
--- NOTE | 2021-08-31 14:19 | ED Cough/URI ---
General Chief Complaint: Respiratory Problems Stated Complaint: SOB Source: patient Exam Limitations: no limitations (SAVANNA CLARKE APRN) History of Present Illness Date Seen by Provider: Aug 31, 2021 Time Seen by Provider: 14:16 Initial Comments To ER by private vehicle with reports of shortness of breath and intractable c oughing. No fevers. She tested positive for influenza A at counts include 234 beds at the [facility] on 08/15. A few days later she began feeling worse and on the she tested positive for Covid. She is not immunized against Covid. She was seen here on the for Covid and got IV fluids, she had a monoclonal antibody infusion on August 23. She was at work today when she developed worsening shortness of breath and cough and was referred to ER by counts include 234 beds at the [facility]. Timing/Duration: constant Severity/Quality: moderate Associated Symptoms: shortness of breath (SAVANNA CLARKE APRN) Allergies and Home Medications Allergies Coded Allergies: latex (Unverified Allergy, Severe, Swelling, Airway Problems, 08/31/12) Sulfa (Sulfonamide Antibiotics) (Verified Allergy, Unknown, NAUSEA, 11/10/16) bleeding reaction aspirin (Verified Allergy, Unknown, 11/14/07) ibuprofen (Verified Allergy, Unknown, 11/14/07) lidocaine (Verified Allergy, Unknown, 11/14/07) sulfamethoxazole (Verified Allergy, Unknown, 08/23/21) trimethoprim (Verified Allergy, Unknown, 08/23/21) influenza virus vaccine, specific (Verified Adverse Reaction, Mild, 12/10/12) Patient Home Medication List Home Medication List Reviewed: Yes (SAVANNA CLARKE APRN) Albuterol Sulfate (Proventil Hfa) 6.7 Gm Hfa.aer.ad, 2 PUFF IH Q6H PRN for SHORTNESS OF BREATH, (Reported) Entered as Reported by: RACHEL RAE on 11/10/161910 Cephalexin (Cephalexin) 500 Mg Tablet, 500 MG PO TID Prescribed by: VANDANA SHANKS on 11/10/16 225 Hydrocodone/Acetaminophen (Hydrocodone-Acetamin 5-325 mg) 1 Each Tablet, 1 TAB PO Q6H PRN for COUGH Prescribed by: SAVANNA CLARKE on 08/31/21 1540 Ondansetron (Ondansetron Odt) 4 Mg Tab.rapdis, 4-8 MG PO Q6H PRN for NAUSEA/VOMITING Prescribed by: KATHLEEN JURADO on 08/20/212319 Promethazine HCl (Promethazine Tablet) 25 Mg Tablet, 25 MG PO Q6H PRN for NAUSEA/VOMITING Prescribed by: KATHLEEN JURADO on 08/20/212319 Review of Systems Review of Systems Constitutional: see HPI EENTM: see HPI Respiratory: see HPI, cough, dyspnea on exertion Cardiovascular: no symptoms reported Genitourinary: no symptoms reported Musculoskeletal: no symptoms reported Skin: no symptoms reported Psychiatric/Neurological: No Symptoms Reported Hematologic/Lymphatic: No Symptoms Reported Immunological/Allergic: no symptoms reported (SAVANNA CLARKE APRN) Past Rpslxwd-Aiuzhu-Hnpitq Hx Seasonal Allergies Seasonal Allergies: Yes (SAVANNA CLARKE APRN) Past Medical History Section, Gallbladder, Orthopedic, Tubal Ligation Asthma Reproductive Disorders: No Pancreatitis Arthritis (SAVANNA CLARKE APRN) Physical Exam Vital Signs - First Documented 08/31/21 08/31/21 13:35 15:52 Temp 36.2 Pulse 105 Resp 18 B/P (MAP) 124/104 (111) Pulse Ox 99 O2 Delivery Room Air (SHERITA SMART MD) Capillary Refill : (SAVANNA CLARKE APRN) Height: 5'5" Weight: 270lbs. oz. 122.078594yb; 39.00 BMI Method:Stated General Appearance: other (Does appear dyspneic, however sats are 96 to 100% on room air.) Eyes: Bilateral Eye Normal Inspection, Bilateral Eye PERRL, Bilateral Eye EOMI HEENT: PERRL/EOMI Neck: non-tender, full range of motion Respiratory: normal breath sounds, no respiratory distress, no accessory muscle use Cardiovascular: no murmur, tachycardia Gastrointestinal: normal bowel sounds, non tender, soft Neurologic/Psychiatric: alert, normal mood/affect, oriented x 3 Skin: normal color, warm/dry (SAVANNA CLARKE APRN) Progress/Results/Core Measures Suspected Sepsis SIRS Temperature: Pulse: Respiratory Rate: Laboratory Tests 08/31/21 13:45: White Blood Count 9.5 Blood Pressure / Mean: Laboratory Tests 08/31/21 13:45: Creatinine 0.73, Platelet Count 363 (SAVANNA CLARKE APRN) Results/Orders Lab Results Laboratory Tests Test 08/31/21 13:45 Range/Units White Blood Count 9.5 4.3-11.0 10^3/uL Red Blood Count 4.46 3.80-5.11 10^6/uL Hemoglobin 12.6 11.5-16.0 g/dL Hematocrit 39 35-52 % Mean Corpuscular Volume 87 80-99 fL Mean Corpuscular Hemoglobin 28 25-34 pg Mean Corpuscular Hemoglobin Concent 32 32-36 g/dL Red Cell Distribution Width 12.6 10.0-14.5 % Platelet Count 363 130-400 10^3/uL Mean Platelet Volume 9.5 9.0-12.2 fL Immature Granulocyte % (Auto) 1 % Neutrophils (%) (Auto) 72 42-75 % Lymphocytes (%) (Auto) 20 12-44 % Monocytes (%) (Auto) 5 0-12 % Eosinophils (%) (Auto) 2 0-10 % Basophils (%) (Auto) 0 0-10 % Neutrophils # (Auto) 6.8 1.8-7.8 10^3/uL Lymphocytes # (Auto) 1.9 1.0-4.0 10^3/uL Monocytes # (Auto) 0.5 0.0-1.0 10^3/uL Eosinophils # (Auto) 0.2 0.0-0.3 10^3/uL Basophils # (Auto) 0.0 0.0-0.1 10^3/uL Immature Granulocyte # (Auto) 0.1 0.0-0.1 10^3/uL D-Dimer 3.79 H 0.00-0.49 UG/ML Sodium Level 138 135-145 MMOL/L Potassium Level 4.2 3.6-5.0 MMOL/L Chloride Level 103 98-107 MMOL/L Carbon Dioxide Level 24 21-32 MMOL/L Anion Gap 11 5-14 MMOL/L Blood Urea Nitrogen 9 7-18 MG/DL Creatinine 0.73 0.60-1.30 MG/DL Estimat Glomerular Filtration Rate 87 BUN/Creatinine Ratio 12 Glucose Level 153 H 70-105 MG/DL Calcium Level 9.2 8.5-10.1 MG/DL C-Reactive Protein High Sensitivity 3.63 H 0.00-0.50 MG/DL Procalcitonin 0.12 H <0.10 NG/ML Serum Test, Qualitative NEGATIVE NEGATIVE (SHERITA SMART MD) Medications Given in ED Current Medications Medications Dose Ordered Sig/Cain Route Start Time Stop Time Status Last Admin Dose Admin Acetaminophen/ Hydrocodone Bitart 1 ea ONCE ONCE PO 08/31/21 14:30 08/31/21 14:31 DC 08/31/21 14:32 1 EA Iohexol 100 ml ONCE ONCE IV 08/31/21 15:00 08/31/21 15:01 DC 08/31/21 15:20 84 ML Sodium Chloride 10 ml NEEDED PRN IV 08/31/21 15:00 08/31/21 15:53 DC 08/31/21 15:21 10 ML Sodium Chloride 100 ml ONCE ONCE IV 08/31/21 15:00 08/31/21 15:01 DC 08/31/21 15:21 80 ML (SHERITA SMART MD) Vital Signs/I&O 08/31/21 08/31/21 08/31/21 13:35 13:35 15:52 Temp 36.2 Pulse 105 87 Resp 18 17 B/P (MAP) 124/104 (111) 124/68 Pulse Ox 99 O2 Delivery Room Air Room Air Room Air (SHERITA SMART MD) Vital Signs/I&O Capillary Refill : (SAVANNA CLARKE APRN) Departure Communication (Admissions) NAME: DIANA JOHNSON [facility] REC#: [id number] PT STATUS: REG ER : 1980 PHYSICIAN: SAVANNA CLARKE APRN ADMIT DATE: 08/31/21/ER Draft Date of Exam:08/31/21 CT ANGIO CHEST W INDICATION: Shortness of breath, elevated D-dimer. TECHNIQUE: Multiple contiguous axial images were obtained through the chest after uneventful bolus administration of intravenous contrast. 3D reconstructed CTA MIP acquisitions were also performed. Auto Exposure Controls were utilized during the CT exam to meet ALARA standards for radiation dose reduction. COMPARISON: Comparison made to prior CTA chest from 08/20/2021. FINDINGS: The pulmonary parenchymal vessels are well opacified with no CT evidence of pulmonary emboli. Thoracic aorta shows no evidence of aneurysm or dissection. Great vessel origins are patent. There are no appreciably enlarged nodes in the mediastinum or jason. There are no enlarged axillary nodes. There is no pleural or pericardial fluid. Visualized portions of the upper abdomen demonstrate hepatomegaly with diffuse fatty infiltration of the liver. Lung parenchymal windows demonstrated partial improvement in the groundglass infiltrates in both lungs, compatible with COVID pneumonia. IMPRESSION: Partial improvement in groundglass infiltrates in both lungs, worse in the lower lobes, compatible with COVID pneumonia. There is no pleural fluid. There is no pulmonary embolus or acute aortic pathology. There is diffuse fatty infiltration of the liver with hepatomegaly. Dictated on workstation # [id number] Dict: 08/31/21 1527 Trans: 08/31/21 1535 [id number] Interpreted by: DESTIN PADRON MD Electronically signed by: (SAVANNA CLARKE APRN) Impression Primary Impression: COVID-19 Disposition: 01 HOME, SELF-CARE Condition: Stable Departure-Patient Inst. Decision time for Depature: 15:38 (SAVANNA CLARKE APRN) Referrals: REJI PÉREZ DO (PCP/Family) Primary Care Physician Patient Instructions: Cough, Adult (DC) Add. Discharge Instructions: 1. Follow-up with primary care. Cough medication as directed. Return to ER for any worsening. All discharge instructions reviewed with patient and/or family. Voiced understanding. Scripts Hydrocodone/Acetaminophen (Hydrocodone-Acetamin 5-325 mg) 1 Each Tablet 1 TAB PO Q6H PRN for COUGH, #10 TAB Prov: SAVANNA CLARKE APRN 08/31/21 Work/School Note: Work Release Form Date Seen in the Emergency Department: Aug 31, 2021 Return to Work: Sep 02, 2021 ATTENDING PHYSICIAN NOTE: I was physically present as attending physician in the emergency department during the care of this patient, but I was not directly involved in the decision making or delivery of care for this patient. (SHERITA SMART MD) SAVANNA CLARKE APRN Aug 31, 2021 14:18 SHERITA SMART MD Aug 31, 2021 17:37
[2021-08-31 14:20] LABS: POTASSIUM 4.2 MMOL/L (3.6-5.0)
[2021-08-31 14:21] LABS: CALCIUM 9.2 MG/DL (8.5-10.1)
[2021-08-31 14:26] LABS: CREATININE SERUM 0.73 MG/DL (0.60-1.30)
[2021-08-31] MEDS ORDERED: HYDROcodone/APAP 5 MG/325 MG (LORTAB) TAB PO ONE (14:30)
--- NOTE | 2021-08-31 14:36 | Diagnostic Imaging Report ---
Indication: Cough and shortness of breath Portable chest 2:13 PM Heart size and pulmonary vascularity are normal. Lungs are clear. There are no effusions or pneumothoraces. IMPRESSION: No acute abnormalities in the chest Dictated by: Dictated on workstation # [id number]
[2021-08-31] MEDS ORDERED: NS 100 ML (IVPB) BAG IV ONE (15:00)
[2021-08-31] MEDS ORDERED: CATHETER FLUSH 10 ML SYR IV PRN (15:00)
[2021-08-31] MEDS ORDERED: IOHEXOL 350 MG/ML 100 ML (OMNIPAQUE 350) VIAL IV ONE (15:00)
[2021-08-31] MEDS ORDERED: LACTATED RINGERS 1,000 ML IV SCH (15:00)
[2021-08-31] MEDS ORDERED: HOLD METFORMIN - RECEIVED CONTRAST 20 ML VIAL IV SCH (15:00)
[2021-08-31] MEDS ORDERED: RT-ALBUTEROL HFA 8.5 GM INHALER IH PRN (15:15)
--- NOTE | 2021-08-31 15:35 | Diagnostic Imaging Report ---
INDICATION: Shortness of breath, elevated D-dimer. TECHNIQUE: Multiple contiguous axial images were obtained through the chest after uneventful bolus administration of intravenous contrast. 3D reconstructed CTA MIP acquisitions were also performed. Auto Exposure Controls were utilized during the CT exam to meet ALARA standards for radiation dose reduction. COMPARISON: Comparison made to prior CTA chest from 08/20/2021. FINDINGS: The pulmonary parenchymal vessels are well opacified with no CT evidence of pulmonary emboli. Thoracic aorta shows no evidence of aneurysm or dissection. Great vessel origins are patent. There are no appreciably enlarged nodes in the mediastinum or jason. There are no enlarged axillary nodes. There is no pleural or pericardial fluid. Visualized portions of the upper abdomen demonstrate hepatomegaly with diffuse fatty infiltration of the liver. Lung parenchymal windows demonstrated partial improvement in the groundglass infiltrates in both lungs, compatible with COVID pneumonia. IMPRESSION: Partial improvement in groundglass infiltrates in both lungs, worse in the lower lobes, compatible with COVID pneumonia. There is no pleural fluid. There is no pulmonary embolus or acute aortic pathology. There is diffuse fatty infiltration of the liver with hepatomegaly. Dictated by: Dictated on workstation # [id number]
[2021-08-31] MEDS ORDERED: ACHD5005 PO (15:39)
[2021-08-31 15:52] VITALS: BP 124/68
== END 2021-08-31 15:52 | disposition home or self-care (01) ==
LOC: EDUNIT# 13:33 → ER 13:35
DX: U07.1 COVID-19 (principal); Z91.040 Latex allergy status
CPT/HCPCS: 36415; 71045; 71275; 80048; 84145; 84703; 85025; 85379; 86141

== ENCOUNTER 2022-11-24 08:00 | Outpatient (RCR) | payer OTHER | END 2022-11-25 | disposition home or self-care (01) | PROVIDERS: ATTEND Nurse Practitioner Family | DX: M25.561 Pain in right knee (principal); M25.551 Pain in right hip; M54.89 Other dorsalgia; I10 Essential (primary) hypertension; K21.00 Gastro-esophageal reflux disease with esophagitis, without bleeding; Z91.040 Latex allergy status; M62.81 Muscle weakness (generalized); G47.33 Obstructive sleep apnea (adult) (pediatric); E78.49 Other hyperlipidemia; E66.8 Other obesity; E11.9 Type 2 diabetes mellitus without complications; J45.909 Unspecified asthma, uncomplicated ==

== ENCOUNTER 2022-12-01 08:56 | Outpatient (RCR) | payer OTHER | END 2022-12-25 | disposition home or self-care (01) | PROVIDERS: ATTEND Nurse Practitioner Family | DX: M25.561 Pain in right knee (principal); M25.551 Pain in right hip; M54.50 Low back pain, unspecified; I10 Essential (primary) hypertension; K21.00 Gastro-esophageal reflux disease with esophagitis, without bleeding; Z91.040 Latex allergy status; M62.81 Muscle weakness (generalized); G47.33 Obstructive sleep apnea (adult) (pediatric); E78.49 Other hyperlipidemia; E66.8 Other obesity; E11.9 Type 2 diabetes mellitus without complications ==

== ENCOUNTER 2023-07-13 14:04 | Emergency (ER) | payer OTHER ==
[~2023-07-13] VITALS: Ht 165 cm; Wt 100.0 kg
--- NOTE | 2023-07-13 14:18 | ED Integumentary General ---
General Chief Complaint: Bite-Animal/Human/Insect Stated Complaint: DOG BITE RT ANKLE Source: patient Exam Limitations: no limitations History of Present Illness Date Seen by Provider: Jul 13, 2023 Time Seen by Provider: 14:08 Initial Comments 42-year-old female presents emerged department today for right ankle pain after dog bite. It was her dog. She states dogs immunizations are up-to-date. There was provoked by another dog. She complains of pain in her Achilles region at the area of the puncture. Last tetanus shot was in 2012. All other systems reviewed and negative except documented per HPI. Voice recognition software was used to help create this chart Allergies and Home Medications Allergies Coded Allergies: latex (Unverified Allergy, Severe, Swelling, Airway Problems, 08/31/12) Sulfa (Sulfonamide Antibiotics) (Verified Allergy, Unknown, NAUSEA, 11/10/16) bleeding reaction aspirin (Verified Allergy, Unknown, 11/14/07) ibuprofen (Verified Allergy, Unknown, 11/14/07) lidocaine (Verified Allergy, Unknown, 11/14/07) sulfamethoxazole (Verified Allergy, Unknown, 08/23/21) trimethoprim (Verified Allergy, Unknown, 08/23/21) influenza virus vaccine, specific (Verified Adverse Reaction, Mild, 12/10/12) Patient Home Medication List Home Medication List Reviewed: Yes Albuterol Sulfate (Proventil Hfa) 6.7 Gm Hfa.aer.ad, 2 PUFF IH Q6H PRN for SHORTNESS OF BREATH, (Reported) Entered as Reported by: RACHEL RAE on 11/10/161910 Cephalexin (Cephalexin) 500 Mg Tablet, 500 MG PO TID Prescribed by: VANDANA SHANKS on 11/10/16 225 Doxycycline Hyclate (Doxycycline Hyclate) 100 Mg Tablet, 100 MG PO BID Prescribed by: ENRIQUE MENDOZA MD on 07/13/23 1509 Hydrocodone/Acetaminophen (Hydrocodone-Acetamin 5-325 mg) 1 Each Tablet, 1 TAB PO Q6H PRN for COUGH Prescribed by: SAVANNA CLARKE on 08/31/21 1540 Ondansetron (Ondansetron Odt) 4 Mg Tab.rapdis, 4-8 MG PO Q6H PRN for NAUSEA/VOMITING Prescribed by: KATHLEEN JURADO on 08/20/21 2320 Promethazine HCl (Promethazine Tablet) 25 Mg Tablet, 25 MG PO Q6H PRN for NAUSEA/VOMITING Prescribed by: KATHLEEN JURADO on 08/20/21 9125 Review of Systems Review of Systems Constitutional: see HPI Past Ixfqdpy-Jqgoqf-Wqlmkz Hx Patient Social History Tobacco Use?: No Use of E-Cig and/or Vaping dev: No Substance use?: No Alcohol Use?: No Seasonal Allergies Seasonal Allergies: Yes Past Medical History Section, Gallbladder, Orthopedic, Tubal Ligation Asthma Reproductive Disorders: No Pancreatitis Arthritis Physical Exam Vital Signs Vital Signs - First Documented 07/13/23 14:20 Temp 36.6 Pulse 96 Resp 18 B/P (MAP) 134/88 (103) Pulse Ox 98 O2 Delivery Room Air Capillary Refill : General Appearance: WD/WN, no apparent distress Skin: other (Small puncture the medial aspect just medial to the Achilles on the right side. Neurovascular and sensory intact. There is small abrasion type wounds to the anterior portion of the ankle.) Progress/Results/Core Measures Results/Orders My Orders Orders - ENRIQUE MENDOZA DO Ankle, Right, 3 Views (07/13/23 14:16) Dipht/Pertuss(Acell)/Tet Adult (Dipht/Pe (07/13/23 14:30) Medications Given in ED Current Medications Medications Dose Ordered Sig/Cain Route Start Time Stop Time Status Last Admin Dose Admin Diphtheria/ Tetanus/Acell Pertussis 0.5 ml ONCE ONCE IM 07/13/23 14:30 07/13/23 14:31 DC 07/13/23 14:52 0.5 ML Vital Signs/I&O 07/13/23 07/13/23 14:20 15:04 Temp 36.6 Pulse 96 Resp 18 84 B/P (MAP) 134/88 (103) 130/84 Pulse Ox 98 98 O2 Delivery Room Air Room Air Departure Communication (Admissions) Patient is hemodynamically stable, neurovascular intact. She has negative x- rays with no foreign body, obtained due to pain out of proportion to exam. She has no evidence for compartment syndrome. Initially spoke with her about Augmentin and she states she would like to avoid this as amoxicillin makes her vomit profusely. I advised that other antibiotics are dramatically less effective against this type of bacteria and that I would like to just give her some nausea medicine in addition to the Augmentin and have her take it with food. Initially offered Zofran which she states does not work for her. Advised to give her Phenergan however in the middle of this conversation she took a phone call and was on the phone for quite some time not allowing us to converse any further. I walked away and ordered antibiotics, nausea medicine and ultimately discharged. The nurse called me back to the room stating patient did not want to take the Augmentin. She then added that she has hives with amoxicillin which she did not mention earlier at all. I switch her to doxycycline and cancel Phenergan. She is discharged in stable condition with close follow-up. Impression Primary Impression: Dog bite Qualified Codes: W54.0XXA - Bitten by dog, initial encounter Disposition: 01 HOME, SELF-CARE Condition: Stable Departure-Patient Inst. Referrals: REJI PÉREZ DO (PCP/Family) Primary Care Physician Patient Instructions: Animal Bites (DC) Add. Discharge Instructions: Take antibiotics as prescribed until they are gone. As discussed, you have declined taking Augmentin at this time secondary to your adverse reaction to amoxicillin. Other antibiotics are much less effective against these types of wounds so if you develop any drainage looks like pus recommend you see your primary doctor in will likely need to switch to Augmentin. Keep the area clean. Return to the emergency department for any severe concerns, drainage looks like pus. All discharge instructions reviewed with patient and/or family. Voiced understanding. Scripts Doxycycline Hyclate (Doxycycline Hyclate) 100 Mg Tablet 100 MG PO BID for 10 Days, #20 TAB Prov: ENRIQUE MENDOZA DO 07/13/23 ENRIQUE MENDOZA DO Jul 13, 2023 14:18
[2023-07-13] MEDS ORDERED: Tetanus/Diphtheria/Pertussis (Acell) ADULT Vaccine 0.5 ML IM ONE (14:30)
--- NOTE | 2023-07-13 14:43 | Diagnostic Imaging Report ---
INDICATION: Pain EXAMINATION: Right ankle 07/13/2023 FINDINGS: 3 views of the ankle. Posterior and plantar calcaneal spurring noted. No fractures or dislocations present. Ankle mortise intact. IMPRESSION: No acute process. Dictated by: Dictated on workstation # [id number]
[2023-07-13] MEDS ORDERED: AMOX-355 PO (14:53)
[2023-07-13] MEDS ORDERED: PROM12.511 PO (14:58)
[2023-07-13 15:04] VITALS: BP 130/84
[2023-07-13] MEDS ORDERED: DOXY100T2 PO (15:09)
== END 2023-07-13 15:15 | disposition home or self-care (01) ==
LOC: EDUNIT# 14:04 → ER 14:08
DX: S91.051A Open bite, right ankle, initial encounter (principal); Z23 Encounter for immunization; Z91.040 Latex allergy status; Z88.2 Allergy status to sulfonamides; W54.0XXA Bitten by dog, initial encounter
CPT/HCPCS: 73610; 90471; 90715